=== PATIENT | female | born 1940 | race American Indian/Alaskan Native ===

== ENCOUNTER 2021-11-06 13:57 | Outpatient (CLI) | payer MEDICARE ==
--- NOTE | 2021-11-06 15:19 | XRay Report ---
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 COMPARISON: None FINDINGS: SUPPORT DEVICES: Left IJ catheter in place with tip at the cavoatrial junction. HEART: Within normal limits. LUNGS/PLEURA: No acute air space or interstitial disease. No pneumothorax. ADDITIONAL FINDINGS: None. IMPRESSION: 1. No acute findings. Signer Name: William Lin MD Signed: 11/06/2021 3:15 PM Workstation Name: [employer]
== END 2021-11-06 13:58 | disposition home or self-care (01) ==
LOC: XRAY 13:57
PROVIDERS: ATTEND Internal Medicine Nephrology
DX: N18.6 End stage renal disease (principal); Z99.2 Dependence on renal dialysis
CPT/HCPCS: 71046